=== PATIENT | male | born 1985 | race Caucasian/White ===

== ENCOUNTER 2020-12-24 14:25 | Observation (INO) | payer MEDICAID ==
[~2020-12-24] VITALS: Ht 185.4 cm; Wt 95.0 kg
[2020-12-24] MEDS ORDERED: iohexol 350MG/ML 100ml bottle IV ONE (14:55)
[2020-12-24 15:14] LABS: BASOPHILS % (AUTO) 0.5 % (0-1); EOSINOPHILS # (AUTO) 0.2 X10'3 (0-0.9); EOSINOPHILS % (AUTO) 2.7 % (0-6); HEMATOCRIT 47.2 % (42.0-52.0); HEMOGLOBIN 16.5 g/dl (14.0-17.9); LYMPHOCYTES # (AUTO) 1.5 X10'3 (1.1-4.8); LYMPHOCYTES % (AUTO) 24.7 % (21-51); MEAN CORPUSCULAR HEMOGLOBIN 32.2 PG (27.0-31.0); MEAN CORPUSCULAR VOLUME 92.1 FL (78-98); MEAN PLATELET VOLUME 7.1 FL (7.4-10.4); MONOCYTES # (AUTO) 0.5 X10'3 (0-0.9); MONOCYTES % (AUTO) 7.4 % (2-12); NEUTROPHILS % (AUTO) 64.7 % (42-75); PLATELET COUNT 211 X10'3 (140-440); RED BLOOD COUNT 5.13 X10'6 (4.70-6.10); RED CELL DISTRIBUTION WIDTH 12.7 % (11.5-14.5); WHITE BLOOD COUNT 6.2 X10'3 (4.5-11.0)
[2020-12-24 15:30] LABS: ALANINE AMINOTRANSFERASE 45 U/L (12-78); ALBUMIN 4.3 G/DL (3.4-5.0); ALBUMIN/GLOBULIN RATIO 1.2 (1.1-1.5); ALKALINE PHOSPHATASE 77 IU/L (46-116); ANION GAP 8 (8-16); ASPARTATE AMINO TRANSFERASE 27 U/L (10-37); BILIRUBIN,TOTAL 0.5 MG/DL (0.1-1.0); BLOOD UREA NITROGEN 23 MG/DL (7-18); BUN/CREATININE RATIO 20.9 (5.4-32.0); CALCIUM 9.4 MG/DL (8.5-10.1); CHLORIDE 106 MMOL/L (99-107); GLUCOSE 100 MG/DL (70-104); POTASSIUM 3.9 MMOL/L (3.5-5.1); SODIUM 142 MMOL/L (135-145); TOTAL CARBON DIOXIDE 27.6 MMOL/L (24-32); TOTAL PROTEIN 7.9 G/DL (6.4-8.2); eGFR 76 ML/MIN
[2020-12-24 16:47] LABS: CLARITY,URINE CLEAR (Clear); COLOR,URINE STRAW (Yellow); GLUCOSE, URINE NEGATIVE (Neg); KETONES,URINE NEGATIVE (Neg); LEUKOCYTE ESTERASE ,URINE NEGATIVE (Neg); NITRITES, URINE NEGATIVE (Neg); OCCULT BLOOD,URINE NEGATIVE (Neg); PH,URINE 7.5 (4.8-8.0); PROTEIN,URINE NEGATIVE (Neg); UROBILINOGEN,URINE 0.2 E.U/dL (0.2-1.0)
[2020-12-24 16:52] LABS: URINE AMPHETAMINE SCREEN NEGATIVE (Neg); URINE BARBITUATE SCREEN NEGATIVE (Neg); URINE BENZODIAZEPINES SCREEN NEGATIVE (Neg); URINE CANNABINOID SCREEN NEGATIVE (Neg); URINE COCAINE SCREEN NEGATIVE (Neg); URINE METHADONE SCREEN NEGATIVE (Neg); URINE OPIATE SCREEN NEGATIVE (Neg); URINE PHENCYCLIDINE SCREEN NEGATIVE (Neg)
[2020-12-24] MEDS ORDERED: aspirin 81mg tab.chew PO ONE (16:55)
[2020-12-24 17:05] LABS: UA COLLECTION TYPE CLN CATCH MIDSTREAM
[2020-12-24] MEDS ORDERED: mag hydrox/Alum hydrox/simeth 30ml oral suspension PO ONE (17:15)
[2020-12-24] MEDS ORDERED: LIDOcaine Viscous 15ml cup MM ONE (17:15)
[2020-12-24] MEDS ORDERED: PANT40TA54 PO (17:23)
[2020-12-24] MEDS ORDERED: SUCR1TAB PO (17:23)
[2020-12-24] MEDS ORDERED: ondansetron/PF 4mg/2ml inj IV PRN (17:55)
[2020-12-24] MEDS ORDERED: magnesium hydroxide 30ml (MOM) UD suspension PO PRN (17:55)
[2020-12-24] MEDS ORDERED: HYDROmorphone inj. 0.5 MG/0.5 ML DISP.SYRIN IV PRN (17:55)
[2020-12-24] MEDS ORDERED: nitroGLYCERIN 0.4mg/hour patch TD ONE (17:55)
[2020-12-24] MEDS ORDERED: pantoprazole 40mg Tablet.DR PO SCH (17:55)
[2020-12-24] MEDS ORDERED: acetaminophen 325mg tablet PO PRN (17:55)
[2020-12-24] MEDS ORDERED: mag hydrox/Alum hydrox/simeth 30ml oral suspension PO PRN (17:55)
[2020-12-24] MEDS ORDERED: nitroGLYCERIN 0.4mg SUBLingual tab SL PRN (18:00)
[2020-12-24] MEDS ORDERED: metoprolol tartrate 1mg/ml inj IV PRN (18:00)
[2020-12-24] MEDS ORDERED: LORazepam 0.5 MG tablet PO PRN (18:00)
[2020-12-24] MEDS ORDERED: aminophylline 250mg/10ml inj. IV PRN (18:00)
[2020-12-24 18:15] LABS: LIPASE 159 U/L (73-393)
--- NOTE | 2020-12-24 18:30 | NUR ---
Pt resting in bed, getting Echo at this time. Vitals done.
--- NOTE | 2020-12-24 19:08 | NUR ---
Discussed Niro patch with Pt. Pt decided to have Ativan and Dilaudid at this time instead. Pt vitals stable, resting. Initial pain 6/10 crushing chest pain that radiates to back. Pain worsening on palpation. Pt also states he has a lump on his cervical/thoracic spine just right of C6. Pt states it is tender to touch with a burning sensation. Lump is able to be palpated with no redness or warmth noted.
--- NOTE | 2020-12-24 19:19 | NUR ---
AWAITING IPA, GIVEN DINNER TRAY
[2020-12-24] MEDS: normal saline 1000ml 1,000 ML IV SCH (19:55)
--- NOTE | 2020-12-24 19:59 | NUR ---
Pt states CP down to 5/10 and states he will do the Nitro patch if pain persists.
--- NOTE | 2020-12-24 20:40 | NUR ---
Patient in room PCU 3018. I have received report from Nisa JOHNSON and had the opportunity to ask questions and assume patient care with Yadira JOHNSON.
--- NOTE | 2020-12-24 20:55 | NUR ---
Patient arrived on floor. Patient vitals stable. Patient belongings with patient. Patient walked to bed, will continue to monitor.
--- NOTE | 2020-12-24 22:14 | NUR ---
Spoke to Dr. Villeda regarding patient history of panic attacks and requested something else PRN for panic attacks. Dr. Villeda stated she did not see any history of panic disorder in ER note, felt comfortable keeping Lorazepam for anxiety Q6H and nothing more. Will continue to monitor.
--- NOTE | 2020-12-24 22:33 | NUR ---
Patient reports constant ringing in right ear Addendum: 12/24/20 at 2240 by Kirstin Suarez RN Amended: Links added.
[2020-12-24] MEDS: HYDROmorphone 1 mg/ml syringe IV PRN (23:06)
[2020-12-25] VITALS (8 sets, daily range): BP systolic 100–129; BP diastolic 49–76
[2020-12-25 03:03] LABS: BASOPHILS % (AUTO) 0.6 % (0-1); EOSINOPHILS # (AUTO) 0.2 X10'3 (0-0.9); EOSINOPHILS % (AUTO) 3.3 % (0-6); HEMATOCRIT 44.6 % (42.0-52.0); HEMOGLOBIN 15.2 g/dl (14.0-17.9); LYMPHOCYTES # (AUTO) 1.9 X10'3 (1.1-4.8); LYMPHOCYTES % (AUTO) 37.9 % (21-51); MEAN CORPUSCULAR HEMOGLOBIN 31.3 PG (27.0-31.0); MEAN CORPUSCULAR HGB CONC 34.1 g/dL (33.0-36.5); MEAN CORPUSCULAR VOLUME 91.9 FL (78-98); MEAN PLATELET VOLUME 7.2 FL (7.4-10.4); MONOCYTES # (AUTO) 0.5 X10'3 (0-0.9); MONOCYTES % (AUTO) 9.8 % (2-12); NEUTROPHILS # (AUTO) 2.5 X10'3 (1.8-7.7); NEUTROPHILS % (AUTO) 48.4 % (42-75); PLATELET COUNT 177 X10'3 (140-440); RED BLOOD COUNT 4.85 X10'6 (4.70-6.10); RED CELL DISTRIBUTION WIDTH 12.7 % (11.5-14.5); WHITE BLOOD COUNT 5.1 X10'3 (4.5-11.0)
[2020-12-25] MEDS: HYDROmorphone 1 mg/ml syringe IV PRN ×3 (03:07→11:23)
[2020-12-25] MEDS: normal saline 1000ml 1,000 ML IV SCH ×2 (03:55→06:30)
[2020-12-25 04:05] LABS: ALBUMIN 3.6 G/DL (3.4-5.0); ANION GAP 11 (8-16); BLOOD UREA NITROGEN 23 MG/DL (7-18); CALCIUM 8.7 MG/DL (8.5-10.1); CHLORIDE 108 MMOL/L (99-107); CHOL/HDL RATIO 4.5 (0.00-4.99); CHOLESTEROL 175 MG/DL (0-200); CREATININE 1.21 MG/DL (0.60-1.10); GLUCOSE 89 MG/DL (70-104); HDL CHOLESTEROL 39 MG/DL (35-60); LDL CHOLESTEROL 116 MG/DL (50-100); SODIUM 144 MMOL/L (135-145); TOTAL CARBON DIOXIDE 25.3 MMOL/L (24-32); TRIGLYCERIDES 100 MG/DL (20-135); eGFR 68 ML/MIN
--- NOTE | 2020-12-25 05:45 | NUR ---
[place]ee documentation: I have reviewed and agree with all interventions, medication administered, assessments performed and documented by Kirstin JOHNSON .
--- NOTE | 2020-12-25 06:10 | NUR ---
Problems reprioritized. Patient report given, questions answered & plan of care reviewed with Ivana JOHNSON.
--- NOTE | 2020-12-25 06:11 | NUR ---
Problems reprioritized. Patient report given, questions answered & plan of care reviewed with Ivana JOHNSON.
--- NOTE | 2020-12-25 06:35 | NUR ---
Patient in room PCU 3018. I have received report from Kirstin Suarez RN and Yadira JOHNSON and had the opportunity to ask questions and assume patient care.
[2020-12-25] MEDS ORDERED: enoxaparin 40mg/0.4ml syringe SUBCUT SCH (08:00)
[2020-12-25] MEDS ORDERED: pantoprazole 40mg Tablet.DR PO SCH (08:00)
[2020-12-25] MEDS: regadenoson 0.4mg/5ml syringe IV PRN ×2 (09:49→09:52)
[2020-12-25] MEDS ORDERED: PANT-47 PO (11:55)
--- NOTE | 2020-12-25 13:38 | NUR ---
Patient stable for discharge per md orders. Prescriptions called in to [facility]. IV taken out with cannula intact. bi tester discontinued. Patient belongings gathered and patient independently dressed self. Strict return precautions and follow up gone over in detail. Patient ambulated to the lobby with the assistance of ELIZABETH Burleson. Patient seen leaving premises in private vehicle driven by significant other.
== END 2020-12-25 13:51 | disposition home or self-care (01) ==
LOC: ER 14:26 → ED HOLD 17:52 → PCU 3S 20:50
PROVIDERS: ADMIT Family Medicine; ATTEND Family Medicine
DX: K21.9 Gastro-esophageal reflux disease without esophagitis (principal); Z20.822 Contact with and (suspected) exposure to COVID-19; R07.9 Chest pain, unspecified; I10 Essential (primary) hypertension; I20.0 Unstable angina; Z87.11 Personal history of peptic ulcer disease; Z79.899 Other long term (current) drug therapy; Z88.0 Allergy status to penicillin; Z88.1 Allergy status to other antibiotic agents
CPT/HCPCS: 36415; 71045; 71275; 78452; 80048; 80053; 80061; 80305; 81003; 83690; 83880; 84484; 85025; 87081; 87635; 93005; 93017; 93306; 96361; 96372; 96374; 96376; 99285; A9500; C9803; G0378; J1170; J2785; J7030; Q9967; J1650